=== PATIENT | male | born 1995 | race Caucasian/White ===

== ENCOUNTER 2019-06-07 15:55 | Emergency (ER) | payer OTHER ==
[~2019-06-07] VITALS: Ht 193 cm; Wt 179.6 kg
[2019-06-07 16:02] VITALS: BP 130/60
--- NOTE | 2019-06-07 16:06 | NUR ---
PT ARRIVED TO ED C/O RASHES ON THE BUE, BLE X 4 DAYS AD SOB X LAST NIGHT. PT DENIES ANY PAIN. LUNG SOUNDS CLEAR ALL THROUGHOUT. NO RESP DISTRESS NOTED. PT SATING 98% RA. NO USE OF ACCESSORY MUSCLE, NO TRIPOD. A &O X 4. PT ABLE TO SWALLOW. CLEAR SPEECH. HAS EERYTHEMA RASHES/BUMPS ON BUE AND BLE, AND PT STATES THE RASHES ARE ITCHY. PT STATES, "I HAD A POT LUCK FOR WORK ON SATURDAY AND AFTER THAT THATS WHEN THE REDNESS AND ITCHINESS STARTED." VSS. JITENDRA. PMH: APPENDECTOMY.
--- NOTE | 2019-06-07 16:08 | NUR ---
Pt taken to bed 1.
--- NOTE | 2019-06-07 16:48 | NUR ---
AT BEDSIDE TO GERRI PONCE
[2019-06-07 16:58] VITALS: BP 134/63
--- NOTE | 2019-06-07 16:58 | NUR ---
DISCHARGE TEACHING AND INSTRUCTIONS GIVEN BY DR. MURPHY.
== END 2019-06-07 16:58 | disposition home or self-care (01) ==
LOC: MED 15:55
DX: B01.9 Varicella without complication (principal); Z90.49 Acquired absence of other specified parts of digestive tract
CPT/HCPCS: 99281